=== PATIENT | female | born 1950 | race Caucasian/White ===

== ENCOUNTER 2020-11-22 10:30 | Inpatient (IN) | payer MEDICARE, OTHER ==
[2020-11-16 12:37] LABS: BASOPHILS # (AUTO) 0.1 X10'3 (0-0.2); BASOPHILS % (AUTO) 1.2 % (0-1); EOSINOPHILS % (AUTO) 0.8 % (0-6); LYMPHOCYTES # (AUTO) 1.4 X10'3 (1.1-4.8); LYMPHOCYTES % (AUTO) 27.9 % (21-51); MEAN CORPUSCULAR HEMOGLOBIN 31.3 PG (27.0-31.0); MEAN CORPUSCULAR HGB CONC 33.3 g/dL (33.0-36.5); MEAN PLATELET VOLUME 7.9 FL (7.4-10.4); MONOCYTES # (AUTO) 0.3 X10'3 (0-0.9); MONOCYTES % (AUTO) 6.4 % (2-12); NEUTROPHILS # (AUTO) 3.2 X10'3 (1.8-7.7); NEUTROPHILS % (AUTO) 63.7 % (42-75); PRE OP HEMATOCRIT 44.6 % (35.0-45.0); PRE OP HEMOGLOBIN 14.9 g/dL (12.0-16.0); PRE OP PLATELET COUNT 362 X10'3 (140-440); RED BLOOD COUNT 4.75 X10'6 (4.20-5.60); RED CELL DISTRIBUTION WIDTH 13.6 % (11.5-14.5)
[2020-11-16 12:46] LABS: PRE OP PROTIME 10.5 SECONDS (9.0-12.0)
[2020-11-16 12:48] LABS: ALBUMIN 4.2 G/DL (3.4-5.0); ALBUMIN/GLOBULIN RATIO 1.4 (1.1-1.5); ALKALINE PHOSPHATASE 65 IU/L (46-116); BLOOD UREA NITROGEN 19 MG/DL (7-18); CALCIUM 8.4 MG/DL (8.5-10.1); CHLORIDE 106 MMOL/L (99-107); CREATININE 0.76 MG/DL (0.40-0.90); PRE OP ALT 24 U/L (30-65); PRE OP ANION GAP 7 (8-16); PRE OP AST 15 U/L (10-37); PRE OP BILIRUB, TOTAL 0.3 MG/DL (0.0-1.0); PRE OP GLUCOSE 82 MG/DL (70-104); PRE OP POTASSIUM 4.2 MMOL/L (3.4-5.1); PRE OP SODIUM 142 MMOL/L (135-145); TOTAL CARBON DIOXIDE 28.6 MMOL/L (24-32); TOTAL PROTEIN 7.2 G/DL (6.4-8.2); eGFR 76 ML/MIN
[~2020-11-22] VITALS: Ht 162.6 cm; Wt 59.1 kg
[~2020-11-22 10:30] MED LIST: ALEN70TA60 PO
[2020-11-23] MEDS ORDERED: ringers solution, lacted 1,000 ML IV SCH (05:00)
[2020-11-23] MEDS ORDERED: cefazolin/dext.iso 2gm/100ml IV ONE (05:30)
[2020-11-23] MEDS ORDERED: famotidine 20mg tablet PO ONE (05:30)
[2020-11-30] VITALS (17 sets, daily range): BP systolic 104–203; BP diastolic 50–197
[2020-11-30] MEDS ORDERED: ringers solution, lacted 1,000 ML IV SCH ×2 (05:00→13:45)
[2020-11-30] MEDS ORDERED: famotidine 20mg tablet PO ONE (05:30)
[2020-11-30] MEDS ORDERED: cefazolin/dext.iso 2gm/100ml IV ONE (05:30)
[2020-11-30] MEDS ORDERED: LIDOcaine 1% (10mg/ml) 2ml vial ONE (10:21)
[2020-11-30] MEDS ORDERED: sevoflurane 250ml liquid IH ONE (10:51)
[2020-11-30] MEDS ORDERED: glycopyrrolate 0.2mg/ml inj ONE (10:51)
[2020-11-30] MEDS ORDERED: neostigmine methylsulfate 1 MG/ML 10ml vial ONE (10:51)
[2020-11-30] MEDS ORDERED: MIDAZolam 1 MG/ML 5ML VIAL ONE (10:51)
[2020-11-30] MEDS ORDERED: fentaNYL/PF 50MCG/1 ML 2ML syringe ONE ×3 (10:51→12:51)
[2020-11-30] MEDS ORDERED: rocuronium 10mg/ml inj IV ONE ×4 (10:51→12:50)
[2020-11-30] MEDS ORDERED: dexamethasone sod phosphate 10mg/ml inj ONE (10:51)
[2020-11-30] MEDS ORDERED: propofol inj 20 ML IV ONE (10:52)
[2020-11-30] MEDS ORDERED: LIDOcaine 2% (20mg/ml) 5ml vial ONE (10:52)
[2020-11-30] MEDS ORDERED: ondansetron/PF 4mg/2ml inj ONE (10:52)
[2020-11-30] MEDS ORDERED: BUPIVAcaine 0.5% inj/PF 30 ML ONE (11:37)
[2020-11-30] MEDS ORDERED: BUPIVAcaine 0.5% inj/PF 30 ml vial IJ ONE (12:00)
[2020-11-30] MEDS ORDERED: albumin (Human) 5% 250ml 250 ML IV ONE (12:31)
[2020-11-30] MEDS ORDERED: BUPIVACAINE liposomal/PF 13.3 MG/ML vial IM ONE ×2 (13:27→13:35)
[2020-11-30] MEDS ORDERED: sugammadex 200mg/2ml injection IV ONE (13:34)
[2020-11-30] MEDS ORDERED: morphine 4 MG/ML inj SYRINge IV PRN (13:45)
[2020-11-30] MEDS ORDERED: morphine 2 MG/ML inj. syringe IV PRN (13:45)
[2020-11-30] MEDS ORDERED: fentaNYL/PF 50MCG/1 ML 2ML syringe IV PRN (13:45)
[2020-11-30] MEDS ORDERED: hydrALAZINE 20mg/ml inj. IV PRN (13:45)
[2020-11-30] MEDS ORDERED: ondansetron/PF 4mg/2ml inj IV PRN (13:45)
[2020-11-30] MEDS ORDERED: labetalol 20mg/4ml (5mg/ml) syringe IV PRN (13:45)
--- NOTE | 2020-11-30 14:16 | NUR ---
ASSUME CARE PT AWAKE MOANING C/O CW PRESSURE AND PAIN 12/23, VSS FM 10L SAT 100% ANESTH AT BEDSIDE, RTLC INTACT, RW LIZETT INTACT AND SECURED CT TO RIGHT SIDE TAPED AND DRESSING AROUND SITE CDI, HOOKED TO WALL SUCTION PER ORDER. NO AIRLEAK NOTED. PIV TO LEFT ARM INTACT HL, SEN CATH TO GRAVITY DRAINING CLEAR YELLOW URINE. NO DISTRESS CONT TO MONITOR. Addendum: 11/30/20 at 1510 by Jeanne Reynolds RN Amended: Links added.
[2020-11-30] MEDS: fentaNYL/PF 50MCG/1 ML 2ML syringe IV PRN ×2 (14:32→14:36)
--- NOTE | 2020-11-30 15:12 | NUR ---
PT MORE AWAKE VSS NO DISTRESS, KALPES[facility] ICE CHIPS STATES PAIN BETTER, SEN EMPTIED CLEAR YELLOW URINE 400ML CT OUT 20ML BLOODY DRAINAGE, MEETS CRITERIA TO DC TO ICU REPORT CALLED TO COURTNEY HURTADO PT UPDATED AND ROOM # PROVIDED. Addendum: 11/30/20 at 1514 by Jeanne Reynolds RN Amended: Links added.
[2020-11-30] MEDS: HYDROmorphone inj. 0.5 MG/0.5 ML DISP.SYRIN IV PRN ×3 (15:17→23:42)
[2020-11-30] MEDS: ondansetron/PF 4mg/2ml inj IV PRN ×2 (16:05→22:17)
[2020-11-30] MEDS: HYDROcodone/acetaminophen 5mg/325mg tablet PO PRN ×2 (16:26→23:39)
--- NOTE | 2020-11-30 16:35 | NUR ---
Received patient from recovery approximately 1600. Awake and alert. ON 3L NC, sats 100%. Pain level to right sided chest returning and described as burning sensation, 7/10. Prn nausea and PO pain med given. Positioned for comfort.
[2020-11-30] MEDS: potassium CL 20mEq in D5-1/2NS 1,000 ML IV SCH ×2 (17:31→22:10)
[2020-11-30] MEDS: ceFAZolin inj. 1,000 MG in dextrose 5%-water 50ml 50 ML IV SCH (17:35)
[2020-11-30] MEDS: ketorolac tromethamine 15mg/ml inj. IV PRN (17:36)
--- NOTE | 2020-11-30 18:15 | NUR ---
Patient in room ICU 2041. I have received report from Gilmar HURTADO and had the opportunity to ask questions and assume patient care.
--- NOTE | 2020-11-30 21:46 | NUR ---
Bedside with Dr. Morales. Verbal orders to DC art line ZOILA. Advance diet as tolerated. DC Jett at midnight. 300 mg gabapentin PO TID.
[2020-11-30] MEDS ORDERED: proCHLORperazine 10 MG/2 ml inj IV ONE (22:35)
[2020-12-01] VITALS (15 sets, daily range): BP systolic 93–134; BP diastolic 60–82
[2020-12-01] MEDS: ceFAZolin inj. 1,000 MG in dextrose 5%-water 50ml 50 ML IV SCH ×2 (00:18→07:38)
[2020-12-01 03:32] LABS: BASOPHILS % (AUTO) 0.2 % (0-1); EOSINOPHILS % (AUTO) 0 % (0-6); HEMATOCRIT 34.3 % (35.0-45.0); HEMOGLOBIN 11.5 g/dl (12.0-16.0); LYMPHOCYTES # (AUTO) 0.8 X10'3 (1.1-4.8); LYMPHOCYTES % (AUTO) 10.8 % (21-51); MEAN CORPUSCULAR HEMOGLOBIN 31.5 PG (27.0-31.0); MEAN CORPUSCULAR HGB CONC 33.4 g/dL (33.0-36.5); MEAN CORPUSCULAR VOLUME 94.2 FL (78-98); MEAN PLATELET VOLUME 8.1 FL (7.4-10.4); MONOCYTES # (AUTO) 0.6 X10'3 (0-0.9); MONOCYTES % (AUTO) 8.5 % (2-12); NEUTROPHILS # (AUTO) 5.7 X10'3 (1.8-7.7); NEUTROPHILS % (AUTO) 80.5 % (42-75); PLATELET COUNT 272 X10'3 (140-440); RED BLOOD COUNT 3.64 X10'6 (4.20-5.60); RED CELL DISTRIBUTION WIDTH 13.7 % (11.5-14.5); WHITE BLOOD COUNT 7.1 X10'3 (4.5-11.0)
[2020-12-01 03:48] LABS: ALBUMIN 3.2 G/DL (3.4-5.0); ANION GAP 6 (8-16); BLOOD UREA NITROGEN 14 MG/DL (7-18); BUN/CREATININE RATIO 18.4 (6.6-38.0); CALCIUM 7.3 MG/DL (8.5-10.1); CHLORIDE 106 MMOL/L (99-107); CREATININE 0.76 MG/DL (0.40-0.90); GLUCOSE 166 MG/DL (70-104); POTASSIUM 4.5 MMOL/L (3.5-5.1); SODIUM 138 MMOL/L (135-145); TOTAL CARBON DIOXIDE 25.6 MMOL/L (24-32); eGFR 76 ML/MIN
[2020-12-01] MEDS: ketorolac tromethamine 15mg/ml inj. IV PRN (04:34)
--- NOTE | 2020-12-01 06:00 | NUR ---
Patient in room ICU 2041. I have received report from Michelle HURTADO and had the opportunity to ask questions and assume patient care.
[2020-12-01] MEDS: potassium CL 20mEq in D5-1/2NS 1,000 ML IV SCH ×2 (06:10→07:39)
[2020-12-01] MEDS: gabapentin 300mg capsule PO SCH ×3 (07:40→20:48)
--- NOTE | 2020-12-01 08:50 | NUR ---
Patient in room ICU 2041. I have received report from Amber HURTADO and had the opportunity to ask questions and assume patient care.
--- NOTE | 2020-12-01 08:50 | NUR ---
Patient report given to Jeanne HURTADO for pt going to room 3014A. Awaiting room to be ready for transfer.
--- NOTE | 2020-12-01 09:57 | NUR ---
Patient transferred to room 3023C with all belongings. Pt's nurse Jeanne at bedside to receive pt.
[2020-12-01] MEDS: ondansetron/PF 4mg/2ml inj IV PRN ×2 (10:26→16:54)
[2020-12-01] MEDS: HYDROmorphone inj. 0.5 MG/0.5 ML DISP.SYRIN IV PRN ×3 (10:27→20:51)
--- NOTE | 2020-12-01 10:34 | NUR ---
Bladder scan showed 300 ml urine, pt attempting bedpan, says she feels a slight urge to void.
[2020-12-01] MEDS ORDERED: acetaminophen 325mg tablet PO PRN (13:10)
[2020-12-01] MEDS ORDERED: ketorolac tromethamine 15mg/ml inj. IV PRN (13:10)
[2020-12-01] MEDS ORDERED: acetaminophen 325mg tablet PO SCH (14:00)
[2020-12-01] MEDS ORDERED: ketorolac tromethamine 15mg/ml inj. IV SCH ×2 (14:00→16:00)
[2020-12-01] MEDS ORDERED: proCHLORperazine 10 MG/2 ml inj IV PRN (14:30)
--- NOTE | 2020-12-01 17:34 | NUR ---
DR CAMPBELL CONTACTED REGARDING PT CT. PT MOVED TO [facility] WITH RN ASSISTANCE. CT STARTED DRAINING SANGUINEOUS FLUID FROM INSERTION SITE. STITCHES REMAIN IN PLACE. PT NO SOB. NO AIR LEAK IN [facility] VISIBLE. DR CAMPBELL ORDERED CONTINUE TO MONITOR. CT WILL BE REMOVED IN A.M. PT BACK TO BED. PT IN NO DISTRESS. V/S 94% ON RA. BP 133/84 HR 76.
--- NOTE | 2020-12-01 18:07 | NUR ---
Problems reprioritized. Patient report given, questions answered & plan of care reviewed with Heidi RN and Danii RN.
[2020-12-02 02:00] VITALS: BP 133/80
[2020-12-02] MEDS: HYDROmorphone inj. 0.5 MG/0.5 ML DISP.SYRIN IV PRN ×2 (02:26→08:59)
[2020-12-02] MEDS: ondansetron/PF 4mg/2ml inj IV PRN ×2 (02:26→09:02)
[2020-12-02] MEDS: potassium CL 20mEq in D5-1/2NS 1,000 ML IV SCH (04:17)
[2020-12-02 04:59] LABS: BASOPHILS % (AUTO) 0.5 % (0-1); EOSINOPHILS # (AUTO) 0.1 X10'3 (0-0.9); EOSINOPHILS % (AUTO) 1.4 % (0-6); HEMATOCRIT 34.4 % (35.0-45.0); HEMOGLOBIN 11.6 g/dl (12.0-16.0); MEAN CORPUSCULAR HGB CONC 33.7 g/dL (33.0-36.5); MEAN CORPUSCULAR VOLUME 94.9 FL (78-98); MEAN PLATELET VOLUME 8.4 FL (7.4-10.4); MONOCYTES # (AUTO) 0.4 X10'3 (0-0.9); MONOCYTES % (AUTO) 7.9 % (2-12); NEUTROPHILS % (AUTO) 72.2 % (42-75); PLATELET COUNT 242 X10'3 (140-440); RED BLOOD COUNT 3.63 X10'6 (4.20-5.60); RED CELL DISTRIBUTION WIDTH 13.4 % (11.5-14.5); WHITE BLOOD COUNT 5.5 X10'3 (4.5-11.0)
[2020-12-02 05:02] LABS: ANION GAP 7 (8-16); BLOOD UREA NITROGEN 10 MG/DL (7-18); CALCIUM 7.7 MG/DL (8.5-10.1); CHLORIDE 102 MMOL/L (99-107); CREATININE 0.77 MG/DL (0.40-0.90); GLUCOSE 118 MG/DL (70-104); POTASSIUM 4.2 MMOL/L (3.5-5.1); SODIUM 133 MMOL/L (135-145); TOTAL CARBON DIOXIDE 24.5 MMOL/L (24-32); eGFR 75 ML/MIN
--- NOTE | 2020-12-02 06:30 | NUR ---
Patient in room PCU 3023. I have received report from Michelle Noguera and had the opportunity to ask questions and assume patient care.
[2020-12-02 07:00] VITALS: BP 144/82
[2020-12-02] MEDS: gabapentin 300mg capsule PO SCH ×2 (10:08→10:11)
[2020-12-02 11:00] VITALS: BP 161/97
[2020-12-02] MEDS ORDERED: ondansetron 4mg rapidly disintigrating tab PO PRN (12:35)
[2020-12-02] MEDS ORDERED: PER5325T PO (12:37)
--- NOTE | 2020-12-02 13:11 | NUR ---
Dr. Kovacs removed chest tube at bedside. dressing CDI no complications.
--- NOTE | 2020-12-02 14:26 | NUR ---
Pt was DC to home at 1402. PIV and central line were removed with cannulas intact. RX were hand written and given to the pt . DC and warning s/s were reviewed with the pt and she verbalized understanding . {Patient alert, oriented and appropriated at time of DC.
== END 2020-12-02 14:02 | disposition home or self-care (01) | DRG 165 ==
LOC: UNDOADMIN 11-30 08:14 → PAS IN 11-30 08:14 → ICU 2S 11-30 14:08 → PAS IN 11-30 16:04 → ICU 2S 11-30 16:04 → PCU 3S 12-01 09:41
PROVIDERS: ADMIT Surgery; ATTEND Surgery
PROC: 0BBD4ZZ Excision of Right Middle Lung Lobe, Percutaneous Endoscopic Approach (ICD-10-PCS; 2020-11-30)
PROC: 07B74ZZ Excision of Thorax Lymphatic, Percutaneous Endoscopic Approach (ICD-10-PCS; 2020-11-30)
PROC: 0W9940Z Drainage of Right Pleural Cavity with Drainage Device, Percutaneous Endoscopic Approach (ICD-10-PCS; 2020-11-30)
PROC: 8E0W4CZ Robotic Assisted Procedure of Trunk Region, Percutaneous Endoscopic Approach (ICD-10-PCS; 2020-11-30)
PROC: 02HV33Z Insertion of Infusion Device into Superior Vena Cava, Percutaneous Approach (ICD-10-PCS; 2020-11-30)
PROC: B548ZZA Ultrasonography of Superior Vena Cava, Guidance (ICD-10-PCS; 2020-11-30)
PROC: 03HY32Z Insertion of Monitoring Device into Upper Artery, Percutaneous Approach (ICD-10-PCS; 2020-11-30)
PROC: 0BBF4ZZ Excision of Right Lower Lung Lobe, Percutaneous Endoscopic Approach (ICD-10-PCS; principal; 2020-11-30 10:51)
DX: D3A.090 Benign carcinoid tumor of the bronchus and lung (principal); Z79.83 Long term (current) use of bisphosphonates
CPT/HCPCS: 36415; 71045; 80048; 80053; 82948; 85025; 85610; 85730; 86885; 86900; 86901; 87081; 88305; 88307; 88313; 88331; 88341; 88342; 88360; 93005; A4618; A6258; A6449; A7000; A7048; C1758; C9290; C9399; G0378; J0690; J0780; J1100; J1170; J1885; J2001; J2250; J2405; J2704; J2710; J3010; J3480; J3490; J7040; J7060; J7120; P9045; U0003; U0005